=== PATIENT | male | born 1945 | race Caucasian/White ===

== ENCOUNTER 2017-10-23 09:16 | Day surgery (SDC) | payer MEDICARE ==
[~2017-10-23] VITALS: Wt 103.4 kg
[~2017-10-23 09:16] MED LIST: ASPI81CH PO; ATEN25 PO; DICL75ER PO; FINA5 PO; GABA300 PO; Hair, Skin & N1 EACH PO; LISHYD2025 PO; PROBIOTIC1 EAC3 PO; Percocet 5-3251 EACH PO; SERT50 PO; Stool Softener100 MG PO; TAMS.4ER PO; VITAMINS PO
[2017-10-24 04:28] LABS: BASOPHILS ABSOLUTE AUTO 0.03 K/mm3 (0.00-0.23); BASOPHILS PERCENT AUTO 0 % (0-2); EOSINOPHILS ABSOLUTE AUTO 0.07 K/mm3 (0.00-0.68); EOSINOPHILS PERCENT AUTO 1 % (0-6); Hematocrit 29.4 % (37.0-53.0); Hemoglobin 9.9 g/dL (13.5-17.5); IMMATURE GRAN ABSOLUTE AUTO 0.01 K/mm3 (0.00-0.10); IMMATURE GRAN PERCENT AUTO 0 % (0-1); LYMPHOCYTES ABSOLUTE AUTO 0.77 K/mm3 (0.84-5.20); LYMPHOCYTES PERCENT AUTO 9 % (21-46); MONOCYTES PERCENT AUTO 8 % (4-13); Mean Corpuscular HGB 31.6 pg (26.0-34.0); Mean Corpuscular HGB Conc 33.7 g/dL (31.5-36.5); Mean Corpuscular Volume 94 fL (80-100); Mean Platelet Volume 10.3 fL (9.1-12.4); NEUTROPHILS ABSOLUTE AUTO 7.08 K/mm3 (1.96-9.15); NEUTROPHILS PERCENT AUTO 82 % (41-73); Platelet Count 184 K/mm3 (150-400); RDW Coefficient Variation 12.2 % (11.7-14.2); RDW Standard Deviation 41.8 fL (35.1-46.3); Red Blood Cell Count 3.13 M/mm3 (4.30-5.90); White Blood Cell Count 8.66 K/mm3 (4.00-11.30)
[2017-10-24 04:41] LABS: Anion Gap 8 mmol/L (6-16); Blood Urea Nitrogen 29 mg/dL (8-24); Bun/Creatinine Ratio 29.3 (12.0-20.0); CO2, Blood 28 mmol/L (21-32); Calcium, Blood 7.7 mg/dL (8.5-10.1); Chloride, Blood 100 mmol/L (98-108); Creatinine, Blood 0.99 mg/dL (0.60-1.20); Glomerular Filtration Rate >60 (60-); Glucose, Blood 95 mg/dL (70-99); Sodium, Blood 136 mmol/L (136-145)
[2017-10-24] MEDS ORDERED: Percocet 5-3251 EACH PO (08:44)
[2017-10-24] MEDS ORDERED: Aspirin EC325 MG PO (08:45)
== END 2017-10-24 14:50 | disposition home or self-care (01) ==
LOC: ORSCMMR 09:16 → ORD 10:30 → SURS 14:56 → ORSCMMR 10-24 14:50
PROVIDERS: Orthopaedic Surgery
PROC: 0SRC0J9 Replacement of Right Knee Joint with Synthetic Substitute, Cemented, Open Approach (ICD-10-PCS; principal; 2017-10-23 10:30)
DX: M17.11 Unilateral primary osteoarthritis, right knee (principal); Z01.818 Encounter for other preprocedural examination; I10 Essential (primary) hypertension; Z79.899 Other long term (current) drug therapy; Z79.82 Long term (current) use of aspirin
CPT/HCPCS: 36415; 73560-RT; 80048; 85025; 86850; 86900; 86901; 88300; 97110; 97116; 97161; 97530; C1713; C1776; G8978; G8979; G8980; J0171; J0690; J0735; J1885; J2250; J2795; J3010; J7120

== ENCOUNTER → 2018-06-26 | Outpatient (CLI) | payer MEDICARE ==
[~2018-06-26] MED LIST changes: +Aspirin EC325 MG PO
== END | disposition home or self-care (01) ==
LOC: PLD 08:44 → LAB SHORT 08:44
DX: L57.0 Actinic keratosis (principal)
CPT/HCPCS: 88305

== ENCOUNTER 2018-09-11 19:19 | Emergency (ER) | payer MEDICARE ==
[~2018-09-11] VITALS: Ht 180.3 cm; Wt 104.3 kg
[2018-09-11 20:15] LABS: BASOPHILS ABSOLUTE AUTO 0.05 K/mm3 (0.00-0.23); BASOPHILS PERCENT AUTO 1 % (0-2); EOSINOPHILS ABSOLUTE AUTO 0.03 K/mm3 (0.00-0.68); EOSINOPHILS PERCENT AUTO 0 % (0-6); Hemoglobin 11.1 g/dL (13.5-17.5); IMMATURE GRAN ABSOLUTE AUTO 0.04 K/mm3 (0.00-0.10); IMMATURE GRAN PERCENT AUTO 0 % (0-1); LYMPHOCYTES ABSOLUTE AUTO 1.29 K/mm3 (0.84-5.20); LYMPHOCYTES PERCENT AUTO 14 % (21-46); MONOCYTES ABSOLUTE AUTO 1.07 K/mm3 (0.16-1.47); MONOCYTES PERCENT AUTO 11 % (4-13); Mean Corpuscular HGB 32.4 pg (26.0-34.0); Mean Corpuscular HGB Conc 33.6 g/dL (31.5-36.5); Mean Corpuscular Volume 96 fL (80-100); Mean Platelet Volume 10.2 fL (9.1-12.4); NEUTROPHILS PERCENT AUTO 74 % (41-73); Platelet Count 271 K/mm3 (150-400); RDW Coefficient Variation 12.3 % (11.7-14.2); Red Blood Cell Count 3.43 M/mm3 (4.30-5.90); White Blood Cell Count 9.58 K/mm3 (4.00-11.30)
[2018-09-11 20:34] LABS: International Normalized Ratio 0.97; Prothrombin Time Results 10.3 Sec (9.7-11.5)
== END 2018-09-11 21:09 | disposition home or self-care (01) ==
LOC: ER 19:19
PROVIDERS: Physician Assistant
DX: S70.12XA Contusion of left thigh, initial encounter (principal); M25.462 Effusion, left knee; X58.XXXA Exposure to other specified factors, initial encounter; Z79.899 Other long term (current) drug therapy; Z79.82 Long term (current) use of aspirin; I10 Essential (primary) hypertension; F32.9 Major depressive disorder, single episode, unspecified
CPT/HCPCS: 36415; 85025; 85610; 85730; 99283

== ENCOUNTER 2018-11-25 17:45 | Emergency (ER) | payer OTHER, MEDICARE ==
[~2018-11-25] VITALS: Ht 180.3 cm; Wt 107.0 kg
[2018-11-25] MEDS ORDERED: DICL75ER PO (18:37)
== END 2018-11-25 20:30 | disposition home or self-care (01) ==
LOC: ER 17:45
DX: M25.562 Pain in left knee (principal); R60.0 Localized edema; I10 Essential (primary) hypertension; F32.9 Major depressive disorder, single episode, unspecified; Z79.899 Other long term (current) drug therapy; Z79.82 Long term (current) use of aspirin
CPT/HCPCS: 93971; 99283-25; A9270; A9270-GY

== ENCOUNTER → 2019-11-17 | Outpatient (CLI) | payer MEDICARE | END | disposition home or self-care (01) | LOC: PLD 11:08 → LAB SHORT 11:08 | DX: D48.5 Neoplasm of uncertain behavior of skin (principal) | CPT/HCPCS: 88305 ==

== ENCOUNTER 2020-03-30 08:16 | Day surgery (SDC) | payer MEDICARE ==
[~2020-03-30] VITALS: Ht 180.3 cm; Wt 103.4 kg
[~2020-03-30 08:16] MED LIST changes: +ACET500 PO; +HYDCHL25 PO; +LISI20 PO; +METO50ER PO
--- NOTE | 2020-03-30 09:28 | NUR ---
Ambulatory in Day Surgery Patient confirms NPO status and agrees with scheduled surgery. History, Chart, Medications and Allergies reviewed before start of procedure. Lungs clear T/O to Auscultation. Patient reports completing Chlorhexadine shower X2 prior to admission to hospital.
--- NOTE | 2020-03-30 15:41 | NUR ---
REPORT RECEIVED FROM AROLDO GAMBOA AT ABOUT 1445. PT SETTLED IN ROOM UPON ASSESSMENT. VSS, A/O. SURGICAL SITE WNL. PT REPORT "SORENESS, BUT PAIN ISN'T BAD". TXA GIVEN. PT REPORTS DOES NOT NEED TO VOID AT THIS TIME, FLUIDS ENCOURAGED. WILL CTM AND BLADDER SCAN PRN
--- NOTE | 2020-03-30 17:53 | NUR ---
BLADDER SCAN SHOWED 375ML. PT STRAIGHT CATHED AT THIS TIME AND ONLY ABLE TO DRAIN 200ML, PT BLADDER SCANNED AFTER DRAINING URINE AND SHOWED 5ML. PT DENIES THE URGE TO VOID. WILL CTM, PO FLUID INTAKE ENCOURAGED.
--- NOTE | 2020-03-30 17:55 | NUR ---
SUMMARY: PT IS POD0 L TKA. NO ACUTE CHANGE SINCE POST OP, VSS, A/O. SEE PREVIOUS NOTE, PT REQUIRED IN AND OUT CATH. PT ABLE TO WORK WITH THERAPY AND WALK IN THE [place], IS MOVING WELL. SURGICAL SITE WNL, PT REPORTS MINIMAL PAIN. NO SAFETY CONCERNS.
--- NOTE | 2020-03-31 03:39 | NUR ---
SHIFT SUMMARY: POD 1 LEFT TOTAL KNEE REPLACEMENT PATIENT IS ALERT AND ORIENTED X4 WHILE AWAKE. HE HAS BEEN ON AND OFF SLEEPING DURING THE SHIFT. VS ARE WNL AND ON RA. PATIENT DENIES PAIN BUT RECIEVED HIS SCHEDULED TORADOL AND TYLENOL. HE IS A SBA WITH FWW AND GAIT BELT. HIS AQUACEL IS C/D/I. HE IS TOLERATING PO INTAKE AND IS VOIDING. PATIENT HAS HAD SCHEDULED ABX IV WITH FLUIDS. HE CALLS APPROPRIATELY. PATIENT IS CURRENTLY LAYING IN BED WITH CALL LIGHT IN REACH. HE IS [place] WITHOUT HIS HEARING AIDS IN. THE PLAN IS TO WORK WITH PT/OT TODAY AND POSSIBLY DISCHARGE HOME.
[2020-03-31 05:01] LABS: BASOPHILS ABSOLUTE AUTO 0.03 K/mm3 (0.00-0.23); BASOPHILS PERCENT AUTO 0 % (0-2); EOSINOPHILS ABSOLUTE AUTO 0.01 K/mm3 (0.00-0.68); EOSINOPHILS PERCENT AUTO 0 % (0-6); Hematocrit 29.4 % (37.0-53.0); Hemoglobin 10.1 g/dL (13.5-17.5); IMMATURE GRAN ABSOLUTE AUTO 0.04 K/mm3 (0.00-0.10); IMMATURE GRAN PERCENT AUTO 0 % (0-1); LYMPHOCYTES ABSOLUTE AUTO 0.89 K/mm3 (0.84-5.20); LYMPHOCYTES PERCENT AUTO 7 % (21-46); MONOCYTES ABSOLUTE AUTO 0.92 K/mm3 (0.16-1.47); MONOCYTES PERCENT AUTO 8 % (4-13); Mean Corpuscular HGB 31.9 pg (26.0-34.0); Mean Corpuscular HGB Conc 34.4 g/dL (31.5-36.5); Mean Corpuscular Volume 93 fL (80-100); Mean Platelet Volume 10.1 fL (9.1-12.4); NEUTROPHILS ABSOLUTE AUTO 10.07 K/mm3 (1.96-9.15); NEUTROPHILS PERCENT AUTO 84 % (41-73); Platelet Count 200 K/mm3 (150-400); RDW Coefficient Variation 11.9 % (11.7-14.2); RDW Standard Deviation 40.3 fL (35.1-46.3); Red Blood Cell Count 3.17 M/mm3 (4.30-5.90); White Blood Cell Count 11.96 K/mm3 (4.00-11.30)
[2020-03-31 05:27] LABS: Anion Gap 6 mmol/L (6-16); Blood Urea Nitrogen 29 mg/dL (8-24); Bun/Creatinine Ratio 27.6 (12.0-20.0); CO2, Blood 26 mmol/L (21-32); Calcium, Blood 7.8 mg/dL (8.5-10.1); Chloride, Blood 98 mmol/L (98-108); Creatinine, Blood 1.05 mg/dL (0.60-1.20); Glomerular Filtration Rate >60 (60-); Glucose, Blood 112 mg/dL (70-99); Potassium, Blood 4.1 mmol/L (3.5-5.5); Sodium, Blood 130 mmol/L (136-145)
[2020-03-31] MEDS ORDERED: Aspir 8181 MG PO (08:11)
[2020-03-31] MEDS ORDERED: Percocet 5-3251 EACH PO (08:12)
--- NOTE | 2020-03-31 12:21 | NUR ---
DISCHARGE SUMMARY PT A&OX4, VSS, LEFT FLOOR VIA WC WITH ALL PERSONAL POSSESSIONS TO GO HOME WITH , INCLUDING DC PACKET, POLAR DAVID, 1 NARC SCRIPT AND 1 ASA SCRIPT, 2 AQUACEL DRESSINGS. DC INSTRUCTIONS PROVIDED. PT REP UNDERSTANDING THOSE INSTRUCTIONS. IV DC'D.
== END 2020-03-31 11:28 | disposition home or self-care (01) ==
LOC: ORSCMMR 08:16 → ORD 09:45 → ORSCMMR 09:45 → ORD 10:45 → SURS 14:03 → ORSCMMR 03-31 11:28
PROVIDERS: Orthopaedic Surgery
PROC: 0SRD0JA Replacement of Left Knee Joint with Synthetic Substitute, Uncemented, Open Approach (ICD-10-PCS; principal; 2020-03-30 09:45)
PROC: 8E0YXBZ Computer Assisted Procedure of Lower Extremity (ICD-10-PCS; principal; 2020-03-30 09:45)
DX: M17.12 Unilateral primary osteoarthritis, left knee (principal); I10 Essential (primary) hypertension; F41.9 Anxiety disorder, unspecified; F32.9 Major depressive disorder, single episode, unspecified; Z79.899 Other long term (current) drug therapy
CPT/HCPCS: 36415; 73560-LT; 80048; 85025; 88300; 97110; 97116; 97162; A9270; C1776; J0171; J0690; J0735; J1100; J1885; J2250; J2370; J2405; J2704; J2795; J3010; J7120